=== PATIENT | female | born 1965 | race American Indian/Alaskan Native ===

== ENCOUNTER 2017-06-15 12:40 | Emergency (ER) | payer MEDICAID, OTHER ==
[2017-06-15 13:03] VITALS: BMI 31.2
[2017-06-15 13:07] VITALS: TEMP 98.1; O2SAT 99
--- NOTE | 2017-06-15 13:36 | ED PDOC ---
Arrival/HPI - General Historian: Patient - History of Present Illness Time/Duration: 4-6 hours Quality: Aching Context: Work - General Chief Complaint: Lower Extremity Problem/Injury Time Seen by Provider: 06/15/17 13:33 - History of Present Illness Narrative History of Present Illness (Text): 06/15/17 13:33 This 51 yo female presents to this ED c/o right lateral ankle pain x 5 hours. Patient stated she tripped and fell down on the floor. Patient feels pain on lateral aspect of right ankle. Denies other complains. (Luciana Segal) Past Medical History - Provider Review Nursing Documentation Reviewed: Yes - Infectious Disease Hx of Infectious Diseases: None - Reproductive Menopause: Yes - Pulmonary Hx Asthma: Yes Hx Chronic Obstructive Pulmonary Disease (COPD): Yes - Endocrine/Metabolic Hx Diabetes Mellitus Type 2: Yes Hx Hypothyroidism: Yes - Gastrointestinal Hx Gastrointestinal Disorders: Yes Hx Constipation: Yes Hx Irritable Bowel: Yes - Psychiatric Hx Substance Use: No - Surgical History Hx Thyroidectomy: Yes Other/Comment: fibroid , ovarian cyst, ECTOPIC - Anesthesia Hx Anesthesia: Yes Hx Anesthesia Reactions: No Family/Social History - Physician Review Nursing Documentation Reviewed: Yes Family/Social History: No Known Family HX Smoking Status: Current Some Days Smoker Hx Alcohol Use: No Hx Substance Use: No Allergies/Home Meds Allergies/Adverse Reactions: Allergies No Known Allergies Allergy (Verified 01/27/17 16:54) Home Medications: Home Meds Medication Instructions Recorded Confirmed Thyroid,Pork [[place] Thyroid] 150 mcg PO DAILY 04/20/16 06/15/17 metFORMIN [glucOPHAGE] 1 tab PO BID 06/15/17 06/15/17 Review of Systems - Review of Systems Constitutional: Normal. absent: Fatigue, Weight Change, Fevers Eyes: Normal ENT: Normal Respiratory: Normal Cardiovascular: Normal Gastrointestinal: Normal Genitourinary Female: Normal Musculoskeletal: Other (right ankle pain) Skin: Normal Neurological: Normal Endocrine: Normal Hemo/Lymphatic: Normal Psychiatric: Normal Physical Exam Temperature: Afebrile Blood Pressure: Normal Pulse: Regular Respiratory Rate: Normal Appearance: Positive for: Well-Appearing, Non-Toxic, Comfortable Pain Distress: None Mental Status: Positive for: Alert and Oriented X 3 - Systems Exam Head: Present: Atraumatic, Normocephalic, Other (no raccoon sign. No suero sign) Pupils: Present: PERRL, Other (no hyphema) Extroacular Muscles: Present: EOMI Conjunctiva: Present: Normal Ears: Present: Normal, NORMAL TM, Normal Canal, Other (No hemotympanum). No: Erythema, TM Bulging, Fluid, TM Perf Mouth: Present: Moist Mucous Membranes Pharnyx: Present: Normal Nose (External): Present: Atraumatic Nose (Internal): Present: Normal Inspection Neck: Present: Normal Range of Motion, Trachea Midline. No: Meningeal Signs, MIDLINE TENDERNESS, Paraspinal Tenderness Respiratory/Chest: Present: Clear to Auscultation, Good Air Exchange, Respiratory Distress, Accessory Muscle Use. No: Wheezes, Decreased Breath Sounds, Rales, Retracting, Rhonchi, Tender to Palpation Cardiovascular: Present: Regular Rate and Rhythm, Normal S1, S2. No: Murmurs Abdomen: No: Tenderness Upper Extremity: Present: Normal Inspection, Normal ROM, NORMAL PULSES, Neurovascularly Intact, Capillary Refill < 2s Lower Extremity: Present: Normal Inspection, NORMAL PULSES, Normal ROM, Neurovascularly Intact, Capillary Refill < 2 s, Other (Armstrong test was negative. No proximal fibula tenderness) Neurological: Present: GCS=15, CN II-XII Intact, Speech Normal, Motor Func Grossly Intact, Normal Sensory Function, Normal Cerebellar Funct Skin: Present: Warm, Dry, Normal Color. No: Rashes Psychiatric: Present: Alert, Oriented x 3 Vital Signs Temp Pulse Resp BP Pulse Ox 06/15/17 13:06 98.1 F 77 18 143/81 99 Medical Decision Making Re-evaluation Time: 15:14 Reassessment Condition: Re-examined, Improved ED Course and Treatment: I was available for consultation during PA evaluation. The chart was reviewed by me, and I agree with disposition. The documented history was done by the physician industrial radiographer. The documented physical exam was done by the physician industrial radiographer. The documented procedures were done by the physician industrial radiographer. (Duke Krause) 06/15/17 15:13 Patient remained stable during the course of ED visit. Ankle pain ahs improved. Patient was provided with keegan bandage and crutches. Patient agreed to be d/c home and to f/u pmd in 1-2 days (Luciana Segal) - RAD Interpretation Radiology Orders: 06/15/17 13:35 ANKLE RIGHT 3 VIEWS ROUTINE [RAD] Stat TIBIA FIBULA RIGHT [RAD] Stat - Medication Orders Current Medication Orders: Discontinued Medications Acetaminophen (Tylenol 325mg Tab) 650 mg PO STAT STA Stop: 06/15/17 13:37 Last Admin: 06/15/17 13:52 Dose: 650 mg Disposition/Present on Arrival - Present on Arrival Any Indicators Present on Arrival: No History of DVT/PE: No History of Uncontrolled Diabetes: No Urinary Catheter: No History of Decub. Ulcer: No History Surgical Site Infection Following: None - Disposition Have Diagnosis and Disposition been Completed?: Yes Disposition Time: 15:14 - Disposition Diagnosis: Ankle pain Disposition: HOME/ ROUTINE Condition: GOOD Discharge Instructions (ExitCare): Ankle Sprain (ED) Additional Instructions: Call private doctor for follow up visit in 1-2 days. Take medication as instructed with food. Return to emergency if symptoms worsen Prescriptions: Naproxen 500 mg PO BID PRN #20 tab PRN Reason: Pain, Severe (8-10) Referrals: Venice Augustine MD [Primary Care Provider] - Follow up with primary Forms: WORK NOTE
--- NOTE | 2017-06-15 14:42 | RAD ---
PROCEDURE: Right Ankle Radiographs. HISTORY: pain COMPARISON: None FINDINGS: BONES: Normal. No fracture. JOINTS: Normal. No osteoarthritis. Ankle mortise maintained. Talar dome intact SOFT TISSUES: Normal. OTHER FINDINGS: None. IMPRESSION: Normal right ankle radiographs.
--- NOTE | 2017-06-15 14:43 | RAD ---
PROCEDURE: Radiographs of the right tibia and fibula. HISTORY: pain COMPARISON: None available. TECHNIQUE: Frontal and lateral views obtained. FINDINGS: BONES: No fracture or destructive lesion. JOINT SPACES: Unremarkable. OTHER FINDINGS: None. IMPRESSION: Unremarkable radiographs of the right tibia and fibula.
[2017-06-15 15:44] VITALS: BP 140/80; PULSE 75; RESP 15
== END 2017-06-15 15:48 | disposition home or self-care (01) ==
LOC: ED 12:40
DX: M25.571 Pain in right ankle and joints of right foot (principal)

== ENCOUNTER 2017-11-05 08:23 | Emergency (ER) | payer OTHER ==
[2017-11-05 08:24] VITALS: BMI 31.2
[2017-11-05 08:35] VITALS: BP 153/85; PULSE 100; RESP 18; TEMP 99.7; O2SAT 98
[2017-11-05] MEDS ORDERED: Ipratropium 0.02% Inhal Soln (0.5 mg/2.5 ml) UD IH STA (08:47)
--- NOTE | 2017-11-05 08:50 | ED PDOC ---
Arrival/HPI - General Chief Complaint: Cough, Cold, Congestion Time Seen by Provider: 11/05/17 08:40 Historian: Patient - History of Present Illness Narrative History of Present Illness (Text): 11/05/17 08:40 Abel Kerns is a 52 year old female, whose past medical history includes diabetes, hypothyroidism, and COPD, who presents to the emergency department complaining of flu like symptoms for the past three days. Patient reports she has a cough and green sputum, along with a sore throat. Patient also states she has chest discomfort secondary to continuous coughing. Additionally, patient notes having generalized body aches and she took a Laxative one day ago. No other complaints were made. Time/Duration: < week (3 days) Symptom Onset: Gradual Symptom Course: Unchanged Quality: Aching Past Medical History - Provider Review Nursing Documentation Reviewed: Yes - Infectious Disease Hx of Infectious Diseases: None - Pulmonary Hx Asthma: Yes Hx Chronic Obstructive Pulmonary Disease (COPD): Yes - Endocrine/Metabolic Hx Diabetes Mellitus Type 2: Yes Hx Hypothyroidism: Yes - Gastrointestinal Hx Gastrointestinal Disorders: Yes Hx Constipation: Yes Hx Irritable Bowel: Yes - Psychiatric Hx Substance Use: No - Surgical History Hx Thyroidectomy: Yes Other/Comment: fibroid , ovarian cyst, ECTOPIC - Anesthesia Hx Anesthesia: Yes Hx Anesthesia Reactions: No Family/Social History - Physician Review Nursing Documentation Reviewed: Yes Family/Social History: Unknown Family HX Smoking Status: Current Some Days Smoker Hx Alcohol Use: No Hx Substance Use: No Allergies/Home Meds Allergies/Adverse Reactions: Allergies No Known Allergies Allergy (Verified 11/05/17 08:35) Home Medications: Home Meds Medication Instructions Recorded Confirmed Thyroid,Pork [[place] Thyroid] 150 mcg PO DAILY 04/20/16 11/05/17 metFORMIN [glucOPHAGE] 1 tab PO BID 06/15/17 11/05/17 Review of Systems - Review of Systems Constitutional: absent: Fevers Eyes: absent: Vision Changes ENT: Sore Throat, Sinus Congestion Respiratory: Cough, Sputum Cardiovascular: Other (chest discomfort secondary to coughing) Gastrointestinal: absent: Abdominal Pain, Nausea, Vomiting Genitourinary Female: absent: Dysuria Musculoskeletal: Other (generalized body aches). absent: Neck Pain Neurological: absent: Headache Endocrine: absent: Polyuria Physical Exam Vital Signs Reviewed: Yes Vital Signs Temp Pulse Resp BP Pulse Ox 11/05/17 08:32 99.7 F H 100 H 18 153/85 H 98 Temperature: Febrile Blood Pressure: Hypertensive Pulse: Tachycardic Respiratory Rate: Normal Appearance: Positive for: Well-Appearing, Non-Toxic, Comfortable Pain Distress: None Mental Status: Positive for: Alert and Oriented X 3 Finger Stick Blood Glucose: 124 - Systems Exam Head: Present: Atraumatic, Normocephalic Pupils: Present: PERRL Extroacular Muscles: Present: EOMI Conjunctiva: Present: Normal Mouth: Present: Moist Mucous Membranes Pharnyx: Present: ERYTHEMA (oral pharyngeal erythema). No: EXUDATE, Peritonsilar Swelling Nose (Internal): Present: Purulent Mucous (green-yellow mucous). No: No Active Bleeding Neck: Present: Lymphadenopathy (mild) Respiratory/Chest: Present: Clear to Auscultation, Decreased Breath Sounds ( mild bilateral decreased breath sounds). No: Good Air Exchange, Respiratory Distress, Accessory Muscle Use Neurological: Present: GCS=15, CN II-XII Intact, Speech Normal, Motor Func Grossly Intact, Normal Sensory Function, Normal Cerebellar Funct, Gait Normal, Memory Normal Skin: Present: Warm, Dry, Normal Color. No: Rashes Psychiatric: Present: Alert, Oriented x 3, Normal Insight, Normal Concentration Medical Decision Making ED Course and Treatment: 11/05/17 Impression: 52 year old female with pharyngeal erythema with no exudate. Patient had purulent mucous and mild lymphadenopathy with mild bilateral decreased breath sounds on exam. Plan: -- Atrovent, Tamiflu, Tylenol, and Zithromax -- Reassess and disposition Progress Notes: - Lab Interpretations Lab Results: Lab Results 11/05/17 08:40: POC Glucose (mg/dL) 124 H - Medication Orders Current Medication Orders: Discontinued Medications Acetaminophen (Tylenol 325mg Tab) 975 mg PO STAT STA Stop: 11/05/17 08:48 Last Admin: 11/05/17 08:58 Dose: 325 mg MAR Pain/Vitals Document 11/05/17 08:58 TA (Rec: 11/05/17 08:58 TA [id number]) Pain Reassessment Is This A Pain ReAssessment? No Sleep Is patient sleeping during reassessment? No Presence of Pain Presence of Pain Yes Pain Scale Used Pain Scale Used Numeric Azithromycin (Zithromax) 500 mg PO STAT STA PRN Reason: Protocol Stop: 11/05/17 08:47 Ipratropium Amigo (Atrovent) 0.5 mg IH STAT STA Stop: 11/05/17 08:48 Last Admin: 11/05/17 08:59 Dose: 0.5 mg Oseltamivir Phosphate (Tamiflu Cap) 75 mg PO ONCE ONE PRN Reason: Protocol Stop: 11/05/17 08:51 - Scribe Statement The provider has reviewed the documentation as recorded by the Lucy Solares Provider Scribe Attestation: All medical record entries made by the Scribe were at my direction and personally dictated by me. I have reviewed the chart and agree that the record accurately reflects my personal performance of the history, physical exam, medical decision making, and the department course for this patient. I have also personally directed, reviewed, and agree with the discharge instructions and disposition. Disposition/Present on Arrival - Present on Arrival Any Indicators Present on Arrival: No History of DVT/PE: No History of Uncontrolled Diabetes: No Urinary Catheter: No History of Decub. Ulcer: No History Surgical Site Infection Following: None - Disposition Have Diagnosis and Disposition been Completed?: Yes Diagnosis: Upper respiratory infection Disposition: HOME/ ROUTINE Disposition Time: 09:41 Patient Plan: Discharge Patient Problems: Current Active Problems Problem Status Onset Upper respiratory infection Acute Condition: GOOD Discharge Instructions (ExitCare): Upper Respiratory Infection (ED), Viral Syndrome (ED) Print Language: FRENCH Additional Instructions: Avoid all dairy. Drink plenty of water. fresh fruit blends/ extra fluids such as water , herbal teas such as ( blended celia/garlic w/ fresh lemon and peppermint. Follow up wth your regular pmd. Prescriptions: Acetaminophen [Tylenol 325mg tab] 325 mg PO Q8 PRN #40 tab PRN Reason: Fever >100.4 F Azithromycin 250 mg PO DAILY #4 tablet Benzonatate [Tessalon Perles] 100 mg PO TID PRN #21 sgl PRN Reason: Cough Ipratropium [Atrovent HFA] 0.018 mg IH Q6 PRN #1 inhaler PRN Reason: Cough Oseltamivir [Tamiflu Cap] 75 mg PO BID #10 cap Forms: [employer] ([place]), WORK NOTE
== END 2017-11-05 09:30 | disposition home or self-care (01) ==
LOC: ED 08:23
DX: J06.9 Acute upper respiratory infection, unspecified (principal); E11.9 Type 2 diabetes mellitus without complications; F17.210 Nicotine dependence, cigarettes, uncomplicated

== ENCOUNTER → 2018-04-10 | Emergency (ER) | payer OTHER ==
[2018-04-10 13:48] VITALS: BMI 37.2
[2018-04-10 14:26] VITALS: BP 152/77; PULSE 70; RESP 20; TEMP 99.1; O2SAT 98
== END | disposition left against medical advice (07) ==
LOC: ED 13:26
DX: Z02.89 Encounter for other administrative examinations (principal); M54.9 Dorsalgia, unspecified